=== PATIENT | male | born 1995 | race African-American/Black ===

== ENCOUNTER 2020-09-14 08:25 | Emergency (ER) | payer MEDICAID ==
[~2020-09-14] VITALS: Ht 167.6 cm; Wt 68.0 kg
[2020-09-14 10:07] VITALS: BP 118/67
[2020-09-14 10:38] LABS: Basophils # (auto) 0 10 ^3/uL (0-0.2); Basophils % (auto) 0.3 % (0.0-2.0); Eosinophils # (auto) 0 10 ^3/uL (0-0.8); Hematocrit 40.2 % (41.0-53.0); Hemoglobin 13.8 g/dL (13.5-17.5); Lymphocytes # (auto) 3.2 10 ^3/uL (0.4-5.4); Mean Corpuscular Hemoglobin 32.5 pg (28.0-32.0); Mean Corpuscular Hgb Conc. 34.4 g/dL (32.0-36.0); Mean Corpuscular Volume 94.6 fL (80.0-100.0); Monocytes # (auto) 1.1 10 ^3/uL (0-1.3); Monocytes % (auto) 9.9 % (0.0-12.0); Neutrophils % (auto) 61.8 % (37.0-80.0); Red Blood Cells 4.24 10^6/uL (4.5-5.90); Red Cell Distribution Width 17.1 % (11.8-14.3); White Blood Cell 11.3 10^3/uL (4.4-10.8)
[2020-09-14 10:58] LABS: Anion Gap 5 (5-15); Blood Urea Nitrogen 7 mg/dL (7-18); Calcium 8.7 mg/dL (8.5-10.1); Carbon Dioxide 25 mmol/L (21-32); Chloride 106 mmol/L (98-107); Glucose 90 mg/dL (74-106); Sodium 136 mmol/L (136-145)
[2020-09-14 11:04] LABS: BUN/Creatinine Ratio 10.4; GFR African American 184 mL/min; GFR Non-African American 152 mL/min
== END 2020-09-14 12:10 | disposition home or self-care (01) ==
LOC: ER 08:25
DX: S46.912A Strain of unspecified muscle, fascia and tendon at shoulder and upper arm level, left arm, initial encounter (principal); R94.31 Abnormal electrocardiogram [ECG] [EKG]; F17.210 Nicotine dependence, cigarettes, uncomplicated; X50.0XXA Overexertion from strenuous movement or load, initial encounter; Y93.89 Activity, other specified; Y92.89 Other specified places as the place of occurrence of the external cause; Y99.8 Other external cause status
CPT/HCPCS: 36415; 73030; 80048; 84484; 85025; 85049; 93005

== ENCOUNTER 2024-06-21 08:54 | Emergency (ER) | payer MEDICAID, OTHER ==
[~2024-06-21] VITALS: Ht 167.6 cm; Wt 77.9 kg
[~2024-06-21 08:54] MED LIST: CYCL-837 PO
[2024-06-21 09:34] VITALS: BP 127/77; PULSE 66; RESP 16; TEMP 98.9; O2SAT 98
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
[2024-06-21] MEDS: HYDROcodone-ACET 5/325MG TAB PO ONE (11:02)
[2024-06-21] MEDS: HYDROcodone-ACET 5/325MG TAB ONE (11:20)
[2024-06-21] MEDS ORDERED: LIDO5DIS21 TOP (11:30)
[2024-06-21] MEDS ORDERED: IBUP-1454 PO (11:30)
[2024-06-21] MEDS ORDERED: METH-1181 PO (11:30)
== END 2024-06-21 11:40 | disposition home or self-care (01) ==
LOC: ER 08:54
DX: M25.561 Pain in right knee (principal); M54.50 Low back pain, unspecified; Z79.899 Other long term (current) drug therapy; Z86.711 Personal history of pulmonary embolism; F17.210 Nicotine dependence, cigarettes, uncomplicated; V89.2XXA Person injured in unspecified motor-vehicle accident, traffic, initial encounter; Y93.89 Activity, other specified; Y92.89 Other specified places as the place of occurrence of the external cause; Y99.8 Other external cause status